=== PATIENT | male | born 1995 | race Caucasian/White ===

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

== ENCOUNTER 2017-01-26 10:45 | Emergency (ER) | payer BC ==
[2017-01-26 10:54] VITALS: BP 120/65
--- NOTE | 2017-01-26 11:48 | UC ---
Complaint Male HPI - HPI Summary HPI Summary: STRUCK IN THE TESTICLES WITH A BASEBALL LAST NIGHT AROUND 5:15PM. WAS WEARING A PROTECTIVE CUP. RIGHT TESTICLE WAS INITIALLY SWOLLEN, RED, FIRM AND TUCKED UP AGAINST HIS BODY. TODAY THE PAIN IS IMPROVED AND THE SWELLING AND FIRMNESS HAVE RESOLVED AND IT IS NO LONGER RIDING HIGH. PT DENIES ANY URINARY SX. - History of Current Complaint Chief Complaint: UCGU Stated Complaint: TESTICULAR INJURY Time Seen by Provider: 01/26/17 10:59 Hx Obtained From: Patient, Family/Operator Assistant I Cementing - MOM Onset/Duration: Sudden Onset, Lasting Hours, Still Present - BUT BETTER Timing: Constant Severity Initially: Severe Severity Currently: Moderate Pain Intensity: 6 Pain Scale Used: 0-10 Numeric Location: Testicle - RIGHT Aggravating Factor(s): Other - TOUCH Associated Signs And Symptoms: Negative: Back Pain, Fever, Hematuria, Dysuria, Nausea, Penile Swelling, Penile Discharge - Allergies/Home Medications Allergies/Adverse Reactions: Allergies Allergy/AdvReac Type Severity Reaction Status Date / Time Ceftibuten [From Cedax] Allergy Unknown Verified 01/26/17 10:54 Reaction Details Home Medications: Home Medications NK [No Home Medications Reported] 01/26/17 [History Confirmed 01/26/17] PMH/Surg Hx/FS Hx/Imm Hx Previously Healthy: Yes - Surgical History Surgical History: None - Family History Known Family History: Positive: Hypertension Negative: Diabetes - Social History Alcohol Use: None Substance Use Type: Marijuana Substance Use Comment - Amount & Last Used: OCCASIONALLY Smoking Status (MU): Never Smoked Tobacco Review of Systems Constitutional: Negative Skin: Negative Respiratory: Negative Cardiovascular: Negative Gastrointestinal: Negative Genitourinary: Other - RIGHT TESTICULAR PAIN All Other Systems Reviewed And Are Negative: Yes Physical Exam Triage Information Reviewed: Yes Appearance: Well-Appearing, No Pain Distress, Well-Nourished Vital Signs: Initial Vital Signs Temp 97.8 F 01/26/17 10:50 Pulse 74 01/26/17 10:50 Resp 18 01/26/17 10:50 BP 120/65 01/26/17 10:50 Pulse Ox 100 01/26/17 10:50 Vital Signs Reviewed: Yes Eyes: Positive: Conjunctiva Clear ENT: Positive: Hearing grossly normal Neck: Positive: Supple Respiratory: Positive: No respiratory distress, No accessory muscle use Cardiovascular: Positive: Pulses Normal Abdomen Description: Positive: Soft Musculoskeletal: Positive: No Edema Neurological: Positive: Alert Psychological: Positive: Age Appropriate Behavior Skin: Negative: rashes UC Physical Exam Vital Signs On Initial Exam: Initial Vitals Temp Pulse Resp BP Pulse Ox 97.8 F 74 18 120/65 100 01/26/17 10:50 01/26/17 10:50 01/26/17 10:50 01/26/17 10:50 01/26/17 10:50 - Genitalia Exam Male Genitalia: Circumcised, Other - NO TENDERNESS OVER SPERMATIC CORDS. NO HERNIA PALPATED Male Genitalia Cont.: Right: Testicles Tender, Bilateral: Testicles Descended, Testicles w/o Swelling Diagnostics - Laboratory Diagnostic Studies Completed/Ordered: URINE DIP UNREMARKABLE - Radiology No standard instances Xray Interpretation: Positive (See Comments) - Suspect right testicular contusion/hematoma, less likely testicular rupture. However, urology referral is suggested Radiology Interpretation Completed By: Radiologist Complaint Male Course/Dx - Differential Dx/Diagnosis Provider Diagnoses: RIGHT TESTICULAR INJURY - Physician Notifications Discussed Patient Care With: Den Salas Time Discussed With Above Provider: 13:00 Instructed by Provider To: Send To Office Now Discharge - Discharge Plan Condition: Stable Disposition: OTHER Discharge Disposition Comment: TO DR. SALAS'S OFFICE DIRECTLY Patient Education Materials: Testicle Pain (ED) Referrals: Anne DEAN,Dominik Regan [Primary Care Provider] - If Needed Den Salas MD [Medical Doctor] - (GO DIRECTLY TO DR. SALAS'S OFFICE FROM HERE FOR FURTHER EVALUATION.) Additional Instructions: BASED ON YOUR ULTRASOUND TODAY UROLOGY EVALUATION IS RECOMMENDED. GO DIRECTLY TO DR. SALAS'S OFFICE FROM HERE. THEY ARE EXPECTING YOU.
--- NOTE | 2017-01-26 13:02 | RAD ---
INDICATION: Right testicular trauma COMPARISON: None TECHNIQUE: Duplex interrogation of the scrotum was performed. FINDINGS: Testicles: There is subtle contour irregularities of the tunica albuginea of the right testis but there is no definitive extrusion of testicular contents to suggest rupture. There are small regions of peripheral decreased echogenicity that suggest areas of intraparenchymal hemorrhage/contusion. There is normal flow on Doppler interrogation. The right testis measures 4.7 x 2.2 x 2.9 cm. The left testis is normal in size and echogenicity measuring 4.7 x 1.9 x 3.0 cm. There is normal flow on Doppler interrogation. Epididymides: There is no evidence of an epididymal mass. The epididymides are normal in size. There is symmetric flow on Doppler interrogation. The right epididymal head measures 1.2 x 1.6 cm and the left 0.9 x 0.9 cm. Hydroceles: Small bilateral simple hydroceles. Varicoceles: None Other: None IMPRESSION: Suspect right testicular contusion/hematoma, less likely testicular rupture. However, urology referral is suggested.
--- NOTE | 2017-01-31 15:02 | UC ---
Progress - Progress Note Progress Note: CALLED TO CHECK ON PT. HE STATES NO TESTICULAR RUPTURE PER UROLOGY. WAS ADVISED CONSERVATIVE MANAGEMENT AND SX SHOULD RESOLVE OVER THE NEXT COUPLE OF WEEKS. IS FEELING MUCH BETTER AND IS IMPROVING DAILY. - MORENO PARK MD
== END 2017-01-26 13:20 ==
LOC: UCEAST 10:45
DX: S39.94XA Unspecified injury of external genitals, initial encounter (principal); W21.03XA Struck by baseball, initial encounter
CPT/HCPCS: 76870; 81003; 99211; G0463

== ENCOUNTER 2019-01-25 21:03 | Emergency (ER) | payer BC ==
--- NOTE | 2019-01-25 21:26 | ED ---
GI/ HPI - HPI Summary HPI Summary: Patient complains of right upper testicle pain 3 days. Patient states he was hit in the testicles with a baseball over 1 year ago, and has had intermittent pain in the same place intermittently over the course of the past year. States this pain is in the same location, but more intense than usual. Denies new trauma, fever, cough, sore throat, CP, SOB, N/V/V abdominal pain, change in urine, change in BM, penile discharge or pain. Medical history is none. - History of Current Complaint Chief Complaint: EDUrogenitalProblems Time Seen by Provider: 01/25/19 21:24 Stated Complaint: GROIN PAIN PER PT Hx Obtained From: Patient Onset/Duration: Started Days Ago Timing: Constant Severity: Moderate Current Severity: Moderate - We don't recall him eat meat gazes Pain Intensity: 5 Pain Characteristics: Dull, Aching - U been trying the ER Aggravating Factor(s): Palpation Alleviating Factor(s): Nothing - Allergy/Home Medications Allergies/Adverse Reactions: Allergies Allergy/AdvReac Type Severity Reaction Status Date / Time ceftibuten [From Cedax] Allergy Difficulty Verified 01/25/19 21:31 Breathing/Wheezing PMH/Surg Hx/FS Hx/Imm Hx Endocrine/Hematology History: Denies: Hx Diabetes, Hx Thyroid Disease Cardiovascular History: Reports: Hx Syncope Denies: Hx Cardiac Arrest, Hx Hypertension, Hx Pacemaker/ICD Respiratory History: Denies: Hx Asthma, Hx Chronic Obstructive Pulmonary Disease (COPD) GI History: Denies: Hx Ulcer History: Denies: Hx Dialysis - look down the Sensory History: Denies: Hx Hearing Aid Opthamlomology History: Denies: Hx Eye Prosthesis EENT History: Denies: Hx Deafness Psychiatric History: Denies: Hx Panic Disorder Infectious Disease History: No Infectious Disease History: Denies: Hx Hepatitis, Hx Human Immunodeficiency Virus (HIV), History Other Infectious Disease, Traveled Outside the [place] in Last 30 Days - Family History Known Family History: Positive: Hypertension Negative: Diabetes - Social History Alcohol Use: None Hx Substance Use: No Substance Use Type: Reports: Marijuana Substance Use Comment - Amount & Last Used: OCCASIONALLY Hx Tobacco Use: No Smoking Status (MU): Never Smoked Tobacco Review of Systems Constitutional: Negative Eyes: Negative ENT: Negative Cardiovascular: Negative Respiratory: Negative Gastrointestinal: Negative Genitourinary: Negative Musculoskeletal: Negative - need Skin: Negative Neurological: Negative Psychological: Normal All Other Systems Reviewed And Are Negative: Yes Physical Exam Triage Information Reviewed: Yes Vital Signs On Initial Exam: Initial Vitals Temp Pulse Resp BP Pulse Ox 98.8 F 63 15 118/82 97 01/25/19 21:04 01/25/19 21:04 01/25/19 21:04 01/25/19 21:04 01/25/19 21:04 Vital Signs Reviewed: Yes Appearance: Positive: Well-Appearing Skin: Positive: Warm Head/Face: Positive: Normal Head/Face Inspection Eyes: Positive: Normal Neck: Positive: Supple Respiratory/Lung Sounds: Positive: Clear to Auscultation Cardiovascular: Positive: Normal Abdomen Description: Positive: Nontender Male Genital Exam: Positive: Epididymal Tenderness, Testicular Tenderness (R). Negative: Urethral Discharge Musculoskeletal: Positive: Normal Neurological: Positive: Normal - : Psychiatric: Positive: Normal AVPU Assessment: Alert - Dylan Coma Scale Best Eye Response: 4 - Spontaneous Best Motor Response: 6 - Obeys Commands Best Verbal Response: 5 - Oriented Coma Scale Total: 15 Procedures - Sedation Patient Received Moderate/Deep Sedation with Procedure: No Diagnostics - Vital Signs Vital Signs Temp Pulse Resp BP Pulse Ox 01/25/19 21:04 98.8 F 63 15 118/82 97 - Laboratory Lab Statement: Any lab studies that have been ordered have been reviewed, and results considered in the medical decision making process. GIGU Course/Dx - Course Course Of Treatment: Patient complains of right upper testicle pain 3 days. Patient states he was hit in the testicles with a baseball over 1 year ago, and has had intermittent pain in the same place intermittently over the course of the past year. States this pain is in the same location, but more intense than usual. Denies new trauma, fever, cough, sore throat, CP, SOB, N/V/V abdominal pain, change in urine, change in BM, penile discharge or pain. Medical history is none. Vital signs within normal limits. Ultrasound testicles negative. Patient advised to follow-up with urology for recurrent testicle pain. - Diagnoses Provider Diagnoses: Testicle pain Discharge ED - Sign-Out/Discharge Documenting (check all that apply): Patient Departure - Discharge Plan Condition: Stable Disposition: HOME Patient Education Materials: Testicle Pain (ED) Referrals: No Primary Care Phys,NOPCP [Primary Care Provider] - Prateek Beauchamp MD [Medical Doctor] - Additional Instructions: Follow-up with urologist Dr. Beauchamp for further evaluation of recurrent testicle pain. - Billing Disposition and Condition Condition: STABLE Disposition: Home
[2019-01-25 22:46] VITALS: BP 116/82
== END 2019-01-25 22:45 | disposition home or self-care (01) ==
LOC: ED 21:03
DX: N50.811 Right testicular pain (principal); Z88.1 Allergy status to other antibiotic agents
CPT/HCPCS: 76870; 99282